=== PATIENT | female | born 1940 | race Caucasian/White ===

== ENCOUNTER 2016-12-11 13:25 | Inpatient (IN) | payer MEDICARE, OTHER ==
--- NOTE | ~2016-12-11 | DS ---
Discharge Summary [facility] [address] [place]. [address] NAME: PATEL MCKENZIE : 39 STATUS : DIS IN PAT#: [id number] AGE: 76 ADM/REG DATE : 12/11/16 MR#: [id number] REPORT SERV DATE: 12/15/16 DICTATED BY: CAMILO ACE DATE: 12/15/16 REPORT STATUS : Draft TRANSCRIBED BY: MODL DATE: 12/15/16 ADMISSION DATE: 12/11/2016 DISCHARGE DATE: 12/15/2016 ADDENDUM: This is an addendum to interim discharge summary dictated by Dr. Schultz on 12/14/2016. DATE OF DISCHARGE TO SNF REHAB: 12/15/2016. CONSULTANTS ON THE CASE: Orthopedic surgeon, Dr. Davion El. DISCHARGE DIAGNOSES: 1. Left intertrochanteric femoral fracture, status post open reduction and internal fixation. 2. Alzheimer dementia, advanced. 3. Diabetes mellitus type 2. 4. History of cerebrovascular accident. 5. Hypertension. 6. History of chronic obstructive pulmonary disease. 7. Normocytic anemia, stable. 8. History of aortic valve repair. 9. Diabetes mellitus with a hemoglobin A1c of 9.3. 10.Hypothyroidism. For the details of hospitalization as well as discharge medications, please refer to the interim discharge summary dictated by Dr. Schultz. I saw this patient on the last day of discharge when she was approved to go to rehab and I also spoke with the patient's daughter. She said that the patient has a preference for pain medications of hydrocodone. The patient's daughter was informed that the patient is on hydrocodone as well as her urinary culture was positive for yeast, and the patient did not require any antibiotic for it. The patient was awake, but she was slightly combative because of the pain, and it was explained to the patient's daughter that excessive pain medications can decrease her respirations and the patient's daughter understood, and the patient was discharged on hydrocodone which was recommended per Dr. Schultz and Dr. El. The patient was discharged in a stable condition. The patient's daughter was updated. The patient's blood pressure was controlled, although she initially refused her oral medications and she was able to take them. DICTATED BY: Mohsen Talamantes/ANISHA Discharge Summary [place] [address]. [address] NAME: PATEL MCKENZIE : 39 STATUS : DIS IN PAT#: [id number] AGE: 76 ADM/REG DATE : 12/11/16 MR#: [id number] REPORT SERV DATE: 12/15/16 DICTATED BY: CAMILO ACE DATE: 12/15/16 REPORT STATUS : Draft TRANSCRIBED BY: MODL DATE: 12/15/16 Camilo Ace M.D. / [id number] CC: Mohsen Talamantes
--- NOTE | ~2016-12-11 | HP ---
History And Physical [address] [place]. [address] NAME: PATEL MCKENZIE : 39 STATUS : ADM IN PAT#: [id number] AGE: 76 ADM/REG DATE : 12/11/16 MR#: [id number] REPORT SERV DATE: 12/11/16 DICTATED BY: PAULO EL DATE: 12/11/16 REPORT STATUS : Draft TRANSCRIBED BY: ANISHA DATE: 12/11/16 DATE OF ADMISSION: 12/11/2016 CHIEF COMPLAINT: Left hip pain. HISTORY OF PRESENT ILLNESS: This is a 76-year-old female, who fell off a chair and broke her left hip. She denies pain or injury elsewhere. ALLERGIES: ASPIRIN, CODEINE, AND MORPHINE. MEDICATIONS: See chart. PAST MEDICAL HISTORY: Hypertension, hyperlipidemia, history of dementia per chart, hypothyroidism, COPD, iron-deficiency anemia, type 2 diabetes, history of coronary artery disease, depression, history of questionable previous CVA, peripheral neuropathy. PAST SURGICAL HISTORY: Appendectomy, cholecystectomy, hysterectomy, previous right hip surgery for fracture, left knee surgery, bladder tack, tonsillectomy, coronary artery bypass graft. SOCIAL HISTORY: . No cigarettes, alcohol, or illicit drug use. FAMILY HISTORY: No known anesthetic complications. REVIEW OF SYSTEMS: Otherwise negative. PHYSICAL EXAMINATION: GENERAL: She is alert and oriented x3, in no apparent distress. HEENT: Atraumatic and normocephalic. NECK: Supple. CHEST: Symmetric and nontender. LUNGS: Per Medicine evaluation. CV: Regular. ABDOMEN: Soft. No mass. EXTREMITIES: Both upper extremities, right lower extremity without acute trauma and left lower extremity is short and externally rotated. Skin is intact. Compartment supple. Thready pulses. NEURO: Sensorimotor without deficit, except decreased secondary to pain. X-RAY: Left intertrochanteric femur fracture. ASSESSMENT: Left intertrochanteric femur fracture. PLAN: ORIF. Risks, benefits, etc., explained to her and son. The patient wishes to proceed. History And Physical [address] [address] NAME: PATEL MCKENZIE : 39 STATUS : ADM IN PAT#: [id number] AGE: 76 ADM/REG DATE : 12/11/16 MR#: [id number] REPORT SERV DATE: 12/11/16 DICTATED BY: PAULO EL DATE: 12/11/16 REPORT STATUS : Draft TRANSCRIBED BY: LIZL DATE: 12/11/16 WTB/ANISHA Allie El M.D. / [id number] CC: MD Fernanda Mccormick Sherry R.
--- NOTE | ~2016-12-11 | OP ---
Record Of Operation [facility] [address] [place]. [address] NAME: PATEL MCKENZIE : 39 STATUS : DIS IN PAT#: [id number] AGE: 76 ADM/REG DATE : 12/11/16 MR#: [id number] REPORT SERV DATE: 12/17/16 DICTATED BY: PAULO BAIRD DATE: 12/17/16 REPORT STATUS : Draft TRANSCRIBED BY: ANISHA DATE: 12/17/16 DATE OF PROCEDURE: 12/11/2016 PREOPERATIVE DIAGNOSIS: Left intertrochanteric femur fracture. POSTOPERATIVE DIAGNOSIS: Left intertrochanteric femur fracture. OPERATION: [place]/intertrochanteric femur fracture. SIDE: Left. SIZE: See chart. ESTIMATED BLOOD LOSS: About 100 mL. TOURNIQUET TIME: None. SPECIMENS: None. ANESTHESIA: See chart. COMPLICATIONS: None. PROCEDURE: The patient was taken to the preoperative holding area. The patient was appropriately identified, marked and the consent form carefully checked. The patient was taken then to the operating room and anesthetic was induced per the anesthesiologist. The patient was carefully positioned, carefully padded, prepped and draped on the fracture table. Prior to the surgical prep a closed reduction was obtained by closed method using fluoroscopic guidance. The patient was then prepped and draped in the usual sterile fashion. Using fluoroscopic guidance, a straight lateral incision was made. This was followed by electrocautery through the fat, the IT band and the vastus, staying towards the posterior portion of the lateral vastus to decrease the amount of muscle tissue that was cut through. Meticulous hemostasis was obtained with electrocautery. Lateral femoral cortex was exposed further with periosteal elevator and appropriate retraction. A guide was then used to place a guidewire basically in the center of the head on AP and lateral x-ray views. This was followed by depth gauge and then triple reamer. Lag screw was placed over the guidewire. The sliding plate was then placed and impacted and checked to be sure it was down snug. The plate was held with a plate clamp distally and reduction again checked. The screw holes in the plate were then filled with screws in the standard fashion with drill depth gauge and then self-tapping screw placement. The screws were then tightened by hand. Record Of Operation [facility] [address] [facility] [address]. [address] NAME: PATEL MCKENZIE : 39 STATUS : DIS IN PAT#: [id number] AGE: 76 ADM/REG DATE : 12/11/16 MR#: [id number] REPORT SERV DATE: 12/17/16 DICTATED BY: PAULO BAIRD DATE: 12/17/16 REPORT STATUS : Draft TRANSCRIBED BY: MODL DATE: 12/17/16 All traction was released and the compression screw placed and tightened. Again x-ray views were checked to ascertain reduction and screw length. The wound was then irrigated and closed with sutures in the vastus. A medium drain was placed distally anteriorly between the vastus and the IT band, then sutured on the IT band, 2-0 subcutaneous, and sam in the skin. Wound dressed sterilely. The patient was awakened and carefully transferred to the bed and transferred to the recovery room without incident. COUNTS: Correct. WTB/MODL Allie Baird M.D. / [id number] CC: Mohsen Talamantes
--- NOTE | ~2016-12-11 | DS ---
Discharge Summary [facility] [address] [place]. [address] NAME: PATEL MCKENZIE : 39 STATUS : ADM IN [facility]#: [id number] AGE: 76 ADM/REG DATE : 12/11/16 MR#: [id number] REPORT SERV DATE: 12/15/16 DICTATED BY: BRIGITTE ROWE DATE: 12/14/16 REPORT STATUS : Draft TRANSCRIBED BY: ANISHA DATE: 12/14/16 ADMISSION DATE: 12/11/2016 DISCHARGE DATE: 12/14/2016 CONSULTATION: Orthopedic Surgeon, Dr. Davion El. OPERATION DURING THIS ADMISSION: Open reduction with internal fixation of left intertrochanteric femur fracture. DISCHARGE DIAGNOSES: 1. Left intertrochanteric femur fracture, status post ORIF. 2. Alzheimer's advanced dementia secondary to Alzheimer's disease. 3. Diabetes mellitus type 2. 4. History of cerebrovascular accident. 5. Hypertension. 6. Chronic obstructive pulmonary disease. 7. Normocytic anemia. 8. History of aortic valve repair. 9. Hypothyroidism. 10.Diabetes mellitus type 2. Hb A1c 9.3. DISCHARGE CONDITION: Stable. HISTORY OF PRESENT ILLNESS: For detailed HPI, please make reference to Dr. Hilario Boston's dictation on 12/11/2016. In brief, this is a 76-year-old female who was transferred from [facility] after she was found to have a left hip fracture. The patient requested to be transferred to [facility] to have hip surgery done by Dr. Peters. Per the transfer summary, it was noted that the patient had a comminuted fracture of the left hip. Of note, the patient has an advanced dementia at baseline. The patient's provided documented H and P, it was noted that the patient had a ground-level fall at home and developed severe left hip pain, was taken to [facility], and had a CT of the pelvis that showed a comminuted left hip fracture. Hence Dr. Peters was contacted who accepted the transfer. The patient was admitted under the Hospitalist Service. HOSPITAL COURSE: 1. Left hip fracture, status post ORIF. The patient was taken to the OR by Dr. El, who performed an open reduction and internal fixation of the left hip without any postop complications. The patient tolerated the procedure. The patient reported some left hip pain which was controlled with tramadol. The patient also received the sliding scale Coumadin for postop DVT prophylaxis. The patient was evaluated by PT, recommended SNF placement. The patient was subsequently discharged to SNF per PT recommendations. 2. Advanced dementia with history of Alzheimer's disease. The patient was pleasantly demented throughout the course of this admission. She was alert, oriented only x2. The patient's family member were available during the course of this admission to help reorient the patient. No significant difficulty was noted with the patient. The Discharge Summary [place] [id number] [facility] [place]. [address] NAME: PATEL MCKENZIE : 39 STATUS : ADM IN [facility]#: [id number] AGE: 76 ADM/REG DATE : 12/11/16 MR#: [id number] REPORT SERV DATE: 12/15/16 DICTATED BY: BRIGITTE ROWE DATE: 12/14/16 REPORT STATUS : Draft TRANSCRIBED BY: ANISHA DATE: 12/14/16 patient's home dose of rivastigmine, memantine, and Aricept was continued throughout the course of this admission. 3. History of CVA. The patient had no neurological focal deficits during the course of this admission. 4. Hypertension. The patient's blood pressure was initially elevated. Norvasc was added to the patient's medication. 5. Normocytic anemia. The patient's hemoglobin remains within the range of 8.4-8.5, no significant acute blood loss noted postop. The patient was advised to continue iron supplement and continue follow up with primary care physician. 6. History of coronary artery disease, status post CABG and status post prior history of stent x5. The patient's aspirin and Plavix was resumed. The patient's aspirin and Plavix was initially held preop. This was recommenced postop without any evidence of GI bleed. The patient was advised to continue follow up with primary thread machine operator as an outpatient. DISCHARGE MEDICATIONS: 1. Norvasc 5 mg p.o. daily. 2. Aspirin 81 mg p.o. daily. 3. Plavix 75 mg p.o. q.48 hours. 4. Vitamin B12 of 1000 mcg p.o. daily. 5. Vitamin D3 of 1000 units p.o. daily. 6. Aricept 10 mg p.o. b.i.d. 7. Lisinopril 5 mg p.o. daily. 8. Tricor 145 mg p.o. daily. 9. Ferrous sulfate 325 mg p.o. every morning. 10.Levemir 12 units at bedtime and insulin per sliding scale. 11.Lisinopril 5 mg p.o. daily. 12.Memantine 10 mg p.o. daily. 13.Lopressor 25 mg p.o. daily. 14.Protonix 40 mg p.o. daily. 15.Rivastigmine 4.6 mg p.o. daily. 16.Spiriva one cap inhaler daily. 17.VESIcare 10 mg p.o. every morning. 18.Loratadine 10 mg p.o. daily. 19.Nitroglycerin 0.4 mg p.o. p.r.n. 20.Albuterol 0.83% solution p.r.n. for shortness of breath. 21.Advair 1 puff b.i.d. 22.ProAir 1 puff daily. DISCHARGE DISPOSITION: To SNF/Rehab. DISCHARGE ACTIVITIES: As tolerated. DISCHARGE FOLLOWUP: 1. Follow up with primary care physician within one to two weeks of discharge. 2. Follow up with Orthopedics within two to three weeks of discharge. Greater than 30 minutes was used to prepare this patient's discharge, reconcile medication, Discharge Summary [address] [address] NAME: PATEL MCKENZIE : 39 STATUS : ADM IN [facility]#: [id number] AGE: 76 ADM/REG DATE : 12/11/16 MR#: [id number] REPORT SERV DATE: 12/15/16 DICTATED BY: BRIGITTE ROWE DATE: 12/14/16 REPORT STATUS : Draft TRANSCRIBED BY: ANISHA DATE: 12/14/16 and advised the patient on discharge plans and followup. DICTATED BY: MD AALIYAH Mccormick/ANISHA Brigitte Rowe MD / [id number] CC: MD Laxmi Mccormick M.D. Chad C Smalley, M.D. David Bosshardt, M.D.
--- NOTE | ~2016-12-11 | HP ---
History And Physical [place] [address] [place]. [address] NAME: PATEL MCKENZIE : 39 STATUS : ADM [facility]#: [id number] AGE: 76 ADM/REG DATE : 12/11/16 MR#: [id number] REPORT SERV DATE: 12/11/16 DICTATED BY: EUGENE HOGAN DATE: 12/11/16 REPORT STATUS : Draft TRANSCRIBED BY: ANISHA DATE: 12/11/16 DATE OF ADMISSION: 12/11/2016 REASON FOR ADMISSION: Fractured left hip. HISTORY OF PRESENT ILLNESS: This is a 76-year-old white female, who spent the night over at [facility] with a fractured hip. She wanted to have the hip surgery done by Dr. Peters. So she was transferred here for surgical hip repair for a comminuted fracture of the left hip. She has a history of dementia. Her history is a suspect and of little value. Her tells me that she was sitting in a regular straight chair and slipped out, fell and hit her hip, about 5 yesterday afternoon. She went to the nearest hospital because of the fear of head injury. She was evaluated at [facility] and subsequently transferred here this morning. She does have a history of diabetes type 2 with her blood sugars over 200. She had some pyuria and urine culture is pending. She did not have any syncopal episode though she does have a cardiac history. She is followed by Dr. Cardenas with an aortic valve replacement. She has not had a history of any cardiac events in the past. PAST MEDICAL HISTORY: She has a history of hypertension, hyperlipidemia, type 2 diabetes mellitus with a hemoglobin A1c of over 10, dementia of the Alzheimer's type; COPD on home oxygen; hypothyroidism; and iron deficiency. She has had some coronary artery disease, chronic back pain, aortic valve replacement, peripheral neuropathy, depression, and a prior CVA about 15 years ago. She has been ambulating with assistance since the first CVA in the past. MEDICATIONS: Her home medications include the followin. Fenofibrate 145 mg p.o. daily. 2. Donepezil 10 mg p.o. daily. 3. Lisinopril 10 mg p.o. daily. 4. Lexapro 20 mg p.o. daily. 5. Fluticasone and salmeterol 1 puff twice a day. 6. Vitamin D, ergocalciferol 50,000 units p.o. every seven days. 7. Januvia 100 mg p.o. daily. 8. Flovent 1 puff twice daily. 9. Percocet 10/325 p.r.n. pain. 10.Rivastigmine 4.6 patch daily. 11.Ferrous sulfate 325 p.o. t.i.d. 12.VESIcare 10 mg p.o. daily. 13.Loratadine 10 mg p.o. daily. 14.Levemir 30 units subcu if the blood sugar is over 150. History And Physical [address] [place]. [address] NAME: PATEL MCKENZIE : 39 STATUS : ADM IN [facility]#: [id number] AGE: 76 ADM/REG DATE : 12/11/16 MR#: [id number] REPORT SERV DATE: 12/11/16 DICTATED BY: EUGENE HOGAN DATE: 12/11/16 REPORT STATUS : Draft TRANSCRIBED BY: ANISHA DATE: 12/11/16 15.Levothyroxine 125 mcg p.o. daily. 16.Plavix 75 mg p.o. daily. 17.Simvastatin 10 mg p.o. daily. 18.Pantoprazole 40 mg p.o. daily. 19.Namenda 10 mg p.o. daily. 20.Amlodipine 5 mg p.o. daily. 21.Metoprolol 25 mg p.o. b.i.d. 22.[place] 5/325 one tablet q.4 hours p.r.n. pain. SURGICAL HISTORY: Includes cholecystectomy; hysterectomy; right hip by Dr. Peters; left knee by Dr. El; bladder tack; tonsillectomy; appendectomy; and CABG done by Dr. Alcantara and Dr. Henry in the past. REVIEW OF SYSTEMS: Difficult to obtain from the patient though she denies any pain, shortness of breath. No new weakness. Her says that this is her baseline mentally. She has had no headache, eye pain, or double vision. No fits, seizures, or convulsions. No melena or hematemesis. She does have pain in the left hip. The pain refers to the left knee and is aggravated by rotational range of motion of the left knee. The remainder of the review of systems is negative. PHYSICAL EXAMINATION: HEENT: EOMI. Sclerae clear. Conjunctivae pink. NECK: No bruit without any JVD. CHEST: Clear anteriorly and laterally. HEART: Regular S1, S2 without murmur, gallop, or click. ABDOMEN: Soft, nontender. Bowel sounds positive. No masses felt. EXTREMITIES: Have a scar on the left knee. Pain with slight rotation of the left knee. Distal pulses are intact at the dorsalis pedis, posterior tibial, and radial bilaterally. SKIN: Without rash, ecchymosis, or bruising. LYMPHATICS: No adenopathy is palpable. LABORATORY DATA: Laboratory from [facility] is reviewed. X-rays of the left hip shows acute mildly comminuted impacted and minimally displaced left intertrochanteric fracture with osteopenia. The chest x-ray showed no acute cardiopulmonary troubles, prior CABG. CT scan of the brain showed no evidence of acute or traumatic intracranial process. There is a small old lacunar infarct at the right basal ganglia; mild chronic deep white matter disease and bilateral cerebral disease. Hemoglobin 10.8, hematocrit 32.9, MCV 79.3, white count 7.4, and platelets 142,000. Urinalysis showed greater than 150 white cells per high-powered field, greater than 150 red cells per high-powered field, and 3+ proteinuria. Urine specific gravity 1.021 and 4+ bacteria. Hemoglobin A1c was 10.9. ASSESSMENT: 1. Fractured left hip, minimally comminuted. Will get Orthopedic Surgery to see if it can be repaired. 2. Limited mobility due to previous stroke. 3. Alzheimer's disease. Followed by Dr. López. History And Physical [address] [address] NAME: PATEL MCKENZIE : 39 STATUS : ADM IN [facility]#: [id number] AGE: 76 ADM/REG DATE : 12/11/16 MR#: [id number] REPORT SERV DATE: 12/11/16 DICTATED BY: EUGENE HOGAN DATE: 12/11/16 REPORT STATUS : Draft TRANSCRIBED BY: MODL DATE: 12/11/16 4. History of aortic valve replacement. Followed by Dr. Cardenas. 5. Diabetes type 2. 6. Right hemiparesis. 7. Hypertension. 8. COPD. 9. Other medical problems as listed above. PLAN: Surgical repair. She is on Plavix, it has been held for a day. She does have urinary tract infection. We will cruz culture and treat as it directs. DB/MODL Eugene Hogan M.D. / [id number] CC: MD DARWIN Mccormick M.D., PhD. [facility] Isha Cardenas M.D. Trae Alcantara M.D. Gaurang Peters M.D. Monroe Henry M.D.
[~2016-12-11 13:25] MED LIST: ACTOS30 PO; ADVAIR115P INH; ADVAIR250 INH; ALLEGRA180 PO; ALLERGY RELIEF PO; ARICEPT10 PO; ASAEC PO; AZO-CRANBERY450 MG OR; AZO-CRANBERY450 MG PO; B121000P IM; BACDS PO; BACTRONASA NAS; BIO IDENTICAL HORMON BU; CALTRA600D PO; CENTRUM TAB1 TAB PO; DHE1 OR; DITROPAN XL10 MG PO; ENDOCET1 TA3 PO; ESTRACE VAGIN42.5 GM V; ESTROGEL TD; FLONASE NAS; FOSAMAX70 MG PO; HUMULIN R1 ML SC; JANUVIA100 MG PO; LANTUS SC; LEVEMFLXPN SC; LEVEMIR SC; LEVOTHYROXIN112 MCG PO; LEVOTHYROXIN125 MCG PO; LEXAPRO10 PO; LEXAPRO20 PO; LIPITOR20 PO; LOP25 PO; LORTAB 5 PO; MAGNESIUM PO; MAGONATE PO; MAGOX4 PO; MINERALS PO; NAMENDA10 MG PO; NEBULIZER SOLUTION INH; NEUR300 PO; NEXIUM40 PO; NITROSTAT0.4 MG SL; NORCO1 TA1 PO; NORV10 PO; NORV5 PO; NTG150 SL; OXYCOD PO; OXYCON10 PO; OXYCON20 PO; OXYCON40 PO; PERCOCET1 TA3 PO; PLAVIX PO; POT GLUCONAT550 M1 OR; POTASSIUM95 MG PO; PRIN10 PO; PRIN20 PO; PRIN5 PO; PROAIR HFA INH; PROTONIX PO; REG PO; RELA5 PO; REOCYTE PLUS OR; SEPTRA1 TAB PO; SYN112 PO; SYN125 PO; TOVIAZ8 MG PO; TRICOR145 PO; VESICARE10 MG PO; VESICARE5 PO; VITAMIN C100 MG PO; VITAMIN D1000 UNI1 PO; VITD PO; VITE PO; VOLTAREN1 % TOP; ZESTRIL10 MG PO; ZOCOR10 PO; ZOCOR20 PO; ZYDONE1 TA1 PO; [UNRECOGNIZED DRUG - OTHER]; [UNRECOGNIZED DRUG - OTHER] PO; [UNRECOGNIZED DRUG - OTHER] PO; [UNRECOGNIZED DRUG - OTHER] XX; [UNRECOGNIZED DRUG - REMARK] PO
[2016-12-11 17:01] LABS: INTERNATIONAL NORMAL RATI 1.3 UNITS (-); PROTIME (NOT ORD) 15.6 SEC (12.0-14.5)
[2016-12-11 17:14] LABS: BASOPHILS 0.2 %; BASOPHILS ABSOLUTE 0.01 10/3/uL (0.0-0.16); EOSINOPHILS 3.3 %; EOSINOPHILS ABSOLUTE 0.18 10/3/uL (0.0-0.53); HEMATOCRIT 32.2 % (36.0-48.0); HEMOGLOBIN 10.7 g/dL (12.0-16.0); IMMATURE GRANULOCYTES 0.2 %; IMMATURE GRANULOCYTES ABSOLUTE 0.01 10/3/uL (0.0-0.11); LYMPHOCYTES 20.3 %; LYMPHOCYTES ABSOLUTE 1.09 10/3/uL (0.67-4.30); MEAN PLATELET VOLUME 10.6 fL (9.2-13.0); MONOCYTES 8.7 %; MONOCYTES ABSOLUTE 0.47 10/3/uL (0.21-1.20); NEUTROPHILS 67.3 %; NEUTROPHILS ABSOLUTE 3.62 10/3/uL (2.02-8.40); PLATELET COUNT 107 10/3/uL (150-400); RED CELL COUNT 4.01 10/6/uL (4.0-5.6); WHITE BLOOD CELLS 5.4 10/3/uL (4.5-10.5)
[2016-12-11 17:16] LABS: MANUAL DIFF NO %; MEAN CORPUS HGB CONC 33.2 g/dL (32.0-36.0); MEAN CORPUSCULAR HEMOGLOB 26.7 pg (26.0-34.0); MEAN CORPUSCULAR VOLUME 80.3 fL (80-100)
[2016-12-11 17:21] LABS: BUN (BLOOD UREA NITROGEN) 16 MG/DL (6-23); CALCIUM, SERUM 9.9 MG/DL (8.5-10.4); CHLORIDE, SERUM 101 MMOL/L (96-112); CO2 (CARBON DIOXIDE) 33 MMOL/L (24-34); CREATININE 1.15 MG/DL (0.55-1.02); GFR AFRICAN AMERICAN 53 ML/MIN (>=60); GFR NON AFRICAN AMERICAN 46 ML/MIN (>=60); GLUCOSE, SERUM 156 MG/DL (60-99); POTASSIUM, SERUM 3.5 MMOL/L (3.5-5.3); SODIUM, SERUM 140 MMOL/L (135-148)
[2016-12-11 17:44] LABS: ASCORBIC ACID (UR NOT ORDER) NEG (NEG); BILIRUBIN, URINE NEGATIVE (NEG); KETONE, URINE NEGATIVE (NEG); LEUKOCYTE ESTERASE(NOT OR LARGE (NEG)
[2016-12-11 17:48] LABS: WBC (NOT ORDERED) (RFLEX) > 182 (0-5)
[2016-12-11] MEDS ORDERED: EXELON4.6T TOP (21:49)
[2016-12-11] MEDS ORDERED: ADVAIR INH (21:49)
[2016-12-11] MEDS ORDERED: MAXIMUM D3 PO (21:49)
[2016-12-11] MEDS ORDERED: PLAVIX PO ×2 (21:50→21:51)
[2016-12-11] MEDS ORDERED: FERROUS SULF325 M1 PO (21:52)
[2016-12-11] MEDS ORDERED: PRIN5 PO (21:53)
[2016-12-11] MEDS ORDERED: VESICARE10 MG PO (21:53)
[2016-12-11] MEDS ORDERED: JANUVIA100 MG PO (21:53)
[2016-12-11] MEDS ORDERED: PROTONIX PO (21:53)
[2016-12-11] MEDS ORDERED: B121000P IM (21:54)
[2016-12-11] MEDS ORDERED: NORCO1 TA1 PO (21:54)
[2016-12-11] MEDS ORDERED: CLARIT10 PO (21:55)
[2016-12-11] MEDS ORDERED: TRICOR145 PO (21:55)
[2016-12-11] MEDS ORDERED: LOP25 PO (21:55)
[2016-12-11] MEDS ORDERED: LEXAPRO5 MG PO (21:58)
[2016-12-11] MEDS ORDERED: HALF81 PO (21:58)
[2016-12-11] MEDS ORDERED: LEVEMFLXPN (21:59)
[2016-12-11] MEDS ORDERED: NAMENDA10 MG PO (21:59)
[2016-12-11] MEDS ORDERED: SPIRIVA INH (22:00)
[2016-12-11] MEDS ORDERED: ARICEPT10 PO (22:00)
[2016-12-11] MEDS ORDERED: ALBUTEROL0.083 % INH (22:01)
[2016-12-11] MEDS ORDERED: PROAIR HFA INH (22:03)
[2016-12-11] MEDS ORDERED: FLONASE NAS (22:04)
[2016-12-11] MEDS ORDERED: NITROSTAT0.4 MG SL (22:06)
[2016-12-11] MEDS ORDERED: REFRESH OPH (22:06)
[2016-12-12 08:42] LABS: BASOPHILS 0.2 %; BASOPHILS ABSOLUTE 0.01 10/3/uL (0.0-0.16); EOSINOPHILS 3.2 %; EOSINOPHILS ABSOLUTE 0.17 10/3/uL (0.0-0.53); HEMOGLOBIN 9.2 g/dL (12.0-16.0); IMMATURE GRANULOCYTES 0.2 %; IMMATURE GRANULOCYTES ABSOLUTE 0.01 10/3/uL (0.0-0.11); LYMPHOCYTES 13.3 %; MEAN CORPUS HGB CONC 33.1 g/dL (32.0-36.0); MEAN CORPUSCULAR HEMOGLOB 26.7 pg (26.0-34.0); MEAN CORPUSCULAR VOLUME 80.8 fL (80-100); MEAN PLATELET VOLUME 10.8 fL (9.2-13.0); MONOCYTES 8.7 %; MONOCYTES ABSOLUTE 0.46 10/3/uL (0.21-1.20); NEUTROPHILS 74.4 %; NEUTROPHILS ABSOLUTE 3.93 10/3/uL (2.02-8.40); PLATELET COUNT 98 10/3/uL (150-400); RBC DISTRIBUTION WIDTH 14.1 % (12.0-16.0); RED CELL COUNT 3.44 10/6/uL (4.0-5.6); WHITE BLOOD CELLS 5.3 10/3/uL (4.5-10.5)
[2016-12-12 08:43] LABS: HEMATOCRIT 27.8 % (36.0-48.0); MANUAL DIFF NO %
[2016-12-12 08:56] LABS: INTERNATIONAL NORMAL RATI 1.3 UNITS (-); PROTIME (NOT ORD) 15.6 SEC (12.0-14.5)
[2016-12-12 08:57] LABS: BUN (BLOOD UREA NITROGEN) 17 MG/DL (6-23); CALCIUM, SERUM 9.4 MG/DL (8.5-10.4); CHLORIDE, SERUM 101 MMOL/L (96-112); CO2 (CARBON DIOXIDE) 31 MMOL/L (24-34); CREATININE 1.15 MG/DL (0.55-1.02); GFR AFRICAN AMERICAN 53 ML/MIN (>=60); GFR NON AFRICAN AMERICAN 46 ML/MIN (>=60); POTASSIUM, SERUM 4.1 MMOL/L (3.5-5.3); SODIUM, SERUM 137 MMOL/L (135-148)
[2016-12-12 08:59] LABS: GLUCOSE, SERUM 192 MG/DL (60-99)
[2016-12-13 05:38] LABS: BASOPHILS 0.2 %; BASOPHILS ABSOLUTE 0.01 10/3/uL (0.0-0.16); EOSINOPHILS 4.6 %; EOSINOPHILS ABSOLUTE 0.21 10/3/uL (0.0-0.53); HEMATOCRIT 25.2 % (36.0-48.0); HEMOGLOBIN 8.4 g/dL (12.0-16.0); IMMATURE GRANULOCYTES 0.4 %; IMMATURE GRANULOCYTES ABSOLUTE 0.02 10/3/uL (0.0-0.11); LYMPHOCYTES 16.5 %; LYMPHOCYTES ABSOLUTE 0.76 10/3/uL (0.67-4.30); MANUAL DIFF NO %; MEAN CORPUS HGB CONC 33.3 g/dL (32.0-36.0); MEAN CORPUSCULAR HEMOGLOB 26.8 pg (26.0-34.0); MEAN CORPUSCULAR VOLUME 80.5 fL (80-100); MEAN PLATELET VOLUME 10.8 fL (9.2-13.0); MONOCYTES 6.1 %; MONOCYTES ABSOLUTE 0.28 10/3/uL (0.21-1.20); NEUTROPHILS 72.2 %; NEUTROPHILS ABSOLUTE 3.32 10/3/uL (2.02-8.40); PLATELET COUNT 98 10/3/uL (150-400); RED CELL COUNT 3.13 10/6/uL (4.0-5.6); WHITE BLOOD CELLS 4.6 10/3/uL (4.5-10.5)
[2016-12-13 05:46] LABS: INTERNATIONAL NORMAL RATI 1.3 UNITS (-)
[2016-12-13 05:55] LABS: CALCIUM, SERUM 9.6 MG/DL (8.5-10.4); CHLORIDE, SERUM 102 MMOL/L (96-112); CO2 (CARBON DIOXIDE) 31 MMOL/L (24-34); CREATININE 0.95 MG/DL (0.55-1.02); GFR AFRICAN AMERICAN 67 ML/MIN (>=60); GFR NON AFRICAN AMERICAN 58 ML/MIN (>=60); GLUCOSE, SERUM 168 MG/DL (60-99); POTASSIUM, SERUM 3.7 MMOL/L (3.5-5.3); SODIUM, SERUM 140 MMOL/L (135-148)
[2016-12-13 05:57] LABS: ALBUMIN 2.6 G/DL (3.5-5.0); BUN (BLOOD UREA NITROGEN) 13 MG/DL (6-23); PHOSPHORUS, SERUM 1.8 MG/DL (2.5-4.5)
[2016-12-14 05:55] LABS: BASOPHILS 0.2 %; BASOPHILS ABSOLUTE 0.01 10/3/uL (0.0-0.16); EOSINOPHILS 2.9 %; EOSINOPHILS ABSOLUTE 0.12 10/3/uL (0.0-0.53); HEMATOCRIT 25.3 % (36.0-48.0); HEMOGLOBIN 8.5 g/dL (12.0-16.0); IMMATURE GRANULOCYTES 0.2 %; IMMATURE GRANULOCYTES ABSOLUTE 0.01 10/3/uL (0.0-0.11); LYMPHOCYTES 20.9 %; LYMPHOCYTES ABSOLUTE 0.85 10/3/uL (0.67-4.30); MEAN CORPUS HGB CONC 33.6 g/dL (32.0-36.0); MEAN CORPUSCULAR HEMOGLOB 27.2 pg (26.0-34.0); MEAN CORPUSCULAR VOLUME 81.1 fL (80-100); MEAN PLATELET VOLUME 10.9 fL (9.2-13.0); MONOCYTES 8.1 %; MONOCYTES ABSOLUTE 0.33 10/3/uL (0.21-1.20); NEUTROPHILS 67.7 %; NEUTROPHILS ABSOLUTE 2.75 10/3/uL (2.02-8.40); PLATELET COUNT 105 10/3/uL (150-400); RBC DISTRIBUTION WIDTH 13.8 % (12.0-16.0); RED CELL COUNT 3.12 10/6/uL (4.0-5.6); WHITE BLOOD CELLS 4.1 10/3/uL (4.5-10.5)
[2016-12-14 06:02] LABS: BUN (BLOOD UREA NITROGEN) 10 MG/DL (6-23); CHLORIDE, SERUM 101 MMOL/L (96-112); CO2 (CARBON DIOXIDE) 30 MMOL/L (24-34); CREATININE 0.79 MG/DL (0.55-1.02); GFR AFRICAN AMERICAN 84 ML/MIN (>=60); GFR NON AFRICAN AMERICAN 72 ML/MIN (>=60); GLUCOSE, SERUM 148 MG/DL (60-99); INTERNATIONAL NORMAL RATI 1.6 UNITS (-); POTASSIUM, SERUM 3.9 MMOL/L (3.5-5.3); SODIUM, SERUM 138 MMOL/L (135-148)
[2016-12-14 06:03] LABS: PROTIME (NOT ORD) 19.3 SEC (12.0-14.5)
[2016-12-14 06:06] LABS: MANUAL DIFF NO %
[2016-12-15 05:38] LABS: INTERNATIONAL NORMAL RATI 2.2 UNITS (-)
== END 2016-12-15 11:14 | DRG 481 ==
LOC: 1SO 13:25
PROVIDERS: Anesthesiology; Hospitalist; Internal Medicine; Specialist
PROC: 0QS704Z Reposition Left Upper Femur with Internal Fixation Device, Open Approach (ICD-10-PCS; principal; 2016-12-11 16:15)
DX: S72.142A Displaced intertrochanteric fracture of left femur, initial encounter for closed fracture (principal); D62 Acute posthemorrhagic anemia; Z99.81 Dependence on supplemental oxygen; G30.9 Alzheimer's disease, unspecified; F02.80 Dementia in other diseases classified elsewhere, unspecified severity, without behavioral disturbance, psychotic disturbance, mood disturbance, and anxiety; I10 Essential (primary) hypertension; E78.5 Hyperlipidemia, unspecified; J44.9 Chronic obstructive pulmonary disease, unspecified; E11.9 Type 2 diabetes mellitus without complications; I25.10 Atherosclerotic heart disease of native coronary artery without angina pectoris; G89.29 Other chronic pain; F32.9 Major depressive disorder, single episode, unspecified; M54.9 Dorsalgia, unspecified; E03.9 Hypothyroidism, unspecified; G62.9 Polyneuropathy, unspecified; W07.XXXA Fall from chair, initial encounter; Z79.02 Long term (current) use of antithrombotics/antiplatelets; Z79.899 Other long term (current) drug therapy; Z95.1 Presence of aortocoronary bypass graft; Z95.2 Presence of prosthetic heart valve; Z86.73 Personal history of transient ischemic attack (TIA), and cerebral infarction without residual deficits
CPT/HCPCS: 71010; 76000; 80048; 80069; 81001; 82962; 83735; 85025; 85610; 87086; 93005; 94640; 97110-GO; 97110-GP; 97116-GP; 97162-GP; 97166-GO; 97530-GP; 97535-GO; A9270-GY; C1713; G8978-CL-GP; G8979-CJ-GP; G8987-CL-GO; G8988-CL-GO; G8989-CL-GO; J0360; J0690; J1885; J2405; J2795; J3010